=== PATIENT | female | born 1960 | race Caucasian/White ===

== ENCOUNTER 2016-10-13 14:00 | Outpatient (CLI) | payer OTHER ==
[2016-10-13 17:55] LABS: Bilirubin Negative (Negative); Blood, Urine Negative (Negative); Clarity Clear (Clear); Glucose, Urine (Dipstick) Negative (Negative); Leukocyte Negative (Negative); Nitrite Negative (Negative); Protein, Urine (Dipstick) Negative (Neg-Trace); Specific Gravity, Urine 1.015 (1.005-1.030); Urobilinogen 0.2 mg/dL (0.2-1.0)
== END 2016-10-13 14:01 ==
LOC: NAVSJIPCSP 14:00
PROVIDERS: ATTEND Family Medicine
DX: R31.9 Hematuria, unspecified (principal)
CPT/HCPCS: 81003

== ENCOUNTER 2017-05-26 12:15 | Outpatient (CLI) | payer OTHER ==
--- NOTE | 2017-05-26 14:19 | ULT ---
THYROID ULTRASOUND: 05/26/2017 PROVIDED CLINICAL HISTORY: Right thyroid lobe nodule. COMPARISON: No comparison examinations are currently available. FINDINGS: The right thyroid lobe measures about 8 x 5.2 x 6.7 cm and is nearly completely replaced by a large, solid appearing nodule, measuring at least 6.1 x 4 x 5.4 cm. The left thyroid lobe measures about 4 x 1 x 0.8 cm and demonstrates no focal abnormality. IMPRESSION: Large, solid appearing right thyroid lobe nodule. Per provided history, this has been previously priscilla pled. Comparison with prior imaging would be useful in assessing for the need for resampling. POS: ERICA
== END 2017-05-26 12:16 | disposition home or self-care (01) ==
LOC: NAV ULT 12:15
PROVIDERS: ATTEND Family Medicine
DX: E04.9 Nontoxic goiter, unspecified (principal); E04.1 Nontoxic single thyroid nodule
CPT/HCPCS: 76536

== ENCOUNTER 2020-01-19 16:05 | Emergency (ER) | payer OTHER ==
--- NOTE | 2020-01-19 17:12 | CT ---
CT maxillofacial noncontrast: 01/19/2020 HISTORY: 59-year-old female status post acute facial trauma FINDINGS: There is a small focal soft tissue contusion in the forehead, centered to the left of midline. There is no fracture. Paranasal sinuses are clear. Incidentally, bilateral styloid processes are elongated, with ossified stylohyoid ligaments, right greater than left. If symptomatic, this would be associated with thecal syndrome. The orbits are clear. IMPRESSION: 1.) Acute, traumatic superficial soft tissue contusion in the fore head. 2) no fracture. 3) see above comments regarding styloid processes and stylohyoid ligaments (is there dysphagia?).
== END 2020-01-19 17:25 | disposition home or self-care (01) ==
LOC: NAV ERS 16:05
DX: S01.81XA Laceration without foreign body of other part of head, initial encounter (principal); S80.02XA Contusion of left knee, initial encounter; M06.9 Rheumatoid arthritis, unspecified; G35 Multiple sclerosis; Z79.899 Other long term (current) drug therapy; W18.30XA Fall on same level, unspecified, initial encounter
CPT/HCPCS: 70486